=== PATIENT | male | born 1965 | race Caucasian/White ===

== ENCOUNTER 2017-09-03 11:19 | Emergency (ER) | payer BC ==
[2017-09-03] MEDS ORDERED: ASPIRIN 81 MG TABLET, CHEWABLE PO ONE (11:53)
--- NOTE | 2017-09-03 11:57 | ER Document Report ---
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 Pt notes shortness of breath, pt went to pcp today, had EKG showing LBBB and sent in for evalution TRAVEL OUTSIDE OF THE [place] IN LAST 30 DAYS: No - HPI Onset: Other Onset/Duration: Intermittent Quality of pain: Pressure Severity: Mild Pain Level: 1 Associated symptoms: Chest pain Exacerbated by: Other Relieved by: Supine Similar symptoms previously: Yes Recently seen / treated by doctor: Yes - Related Data Allergies/Adverse Reactions: No Known Allergies Allergy (Verified 09/03/17 11:41) Past Medical History - Social History Smoking Status: Never Smoker Cigarette use (# per day): No Chew tobacco use (# tins/day): No Smoking Education Provided: No Frequency of alcohol use: None Drug Abuse: None Family History: Reviewed & Not Pertinent Patient has suicidal ideation: No Patient has homicidal ideation: No - Past Medical History Cardiac Medical History: Denies: Hx Coronary Artery Disease, Hx Heart Attack, Hx Hypertension Pulmonary Medical History: Denies: Hx Asthma, Hx Bronchitis, Hx COPD, Hx Pneumonia Neurological Medical History: Denies: Hx Cerebrovascular Accident, Hx Seizures Renal/ Medical History: Denies: Hx Peritoneal Dialysis Musculoskeltal Medical History: Denies Hx Arthritis Past Surgical History: Denies: Hx Pacemaker Review of Systems - Review of Systems Notes: REVIEW OF SYSTEMS: CONSTITUTIONAL : Denies fever, chills, or sweats. Denies recent illness. EENT: Denies eye, ear, throat, or mouth pain or symptoms. Denies nasal or sinus congestion or discharge. Denies throat, tongue, or mouth swelling or difficulty swallowing. CARDIOVASCULAR: Admits to chest pain RESPIRATORY: Denies cough, cold, or chest congestion. Denies shortness of breath, difficulty breathing, or wheezing. GASTROINTESTINAL: Denies abdominal pain or distention. Denies nausea, vomiting , or diarrhea. Denies blood in vomitus, stools, or per rectum. Denies black, tarry stools. Denies constipation. GENITOURINARY: Denies difficulty urinating, painful urination, burning, frequency, blood in urine, or discharge. MUSCULOSKELETAL: Denies back or neck pain or stiffness. Denies joint pain or swelling. SKIN: Denies rash, lesions or sores. HEMATOLOGIC : Denies easy bruising or bleeding. LYMPHATIC: Denies swollen, enlarged glands. NEUROLOGICAL: Denies confusion or altered mental status. Denies passing out or loss of consciousness. Denies dizziness or lightheadedness. Denies headache. Denies weakness or paralysis or loss of use of either side. Denies problems with gait or speech. Denies sensory loss, numbness, or tingling. Denies seizures. PSYCHIATRIC: Denies anxiety or stress. Denies depression, suicidal ideation, or homicidal ideation. ALL OTHER SYSTEMS REVIEWED AND NEGATIVE. Dictation was performed using [employer] voice recognition software PHYSICAL EXAMINATION: GENERAL: Well-appearing, well-nourished and in no acute distress. HEAD: Atraumatic, normocephalic. EYES: Pupils equal round and reactive to light, extraocular movements intact, sclera anicteric, conjunctiva are normal. ENT: Nares patent, oropharynx clear without exudates. Moist mucous membranes. NECK: Normal range of motion, supple without lymphadenopathy LUNGS: Breath sounds clear to auscultation bilaterally and equal. No wheezes rales or rhonchi. HEART: Regular rate and rhythm without murmurs ABDOMEN: Soft, nontender, nondistended abdomen. No guarding, no rebound. No masses appreciated. Musculoskeletal: Normal range of motion, no pitting or edema. No cyanosis. NEUROLOGICAL: Cranial nerves grossly intact. Normal speech, normal gait. Normal sensory, motor exams PSYCH: Normal mood, normal affect. SKIN: Warm, Dry, normal turgor, no rashes or lesions noted. Physical Exam - Vital signs Vitals: Temp Pulse Resp BP Pulse Ox 98.7 F 71 16 150/89 H 98 09/03/17 11:25 09/03/17 11:25 09/03/17 11:25 09/03/17 11:25 09/03/17 11:25 Course - Re-evaluation Re-evalutation: 09/03/17 11:59 Patient's EKG was noted in the office does show left bundle branch block, was sent in and initial EKG at 11:35:09 notes left bundle branch block with a left bundle branch block resolves within 45 seconds, this occurs when he is chest pain-free, patient denies any episodes of WPW is not noted to be tachycardic, I did speak with Dr. Galarza who requests patient be obs 09/03/17 12:08 Dr Craig looked at ekg he has concerns of early preexitation WPW, MAYURI lopez EP consulted 09/03/17 13:34 I spoke with transfer center, there EP physician Dr. Alves does not believe it is Bkafr-Lcadjrnha-Ogezi syndrome, they requested their hospitalist to take the patient instead, Dr. Sales has accepted the patient - Vital Signs Vital signs: Temp Pulse Resp BP Pulse Ox 98.7 F 71 17 161/97 H 100 09/03/17 11:25 09/03/17 11:25 09/03/17 12:01 09/03/17 12:01 09/03/17 12:01 - Laboratory Result Diagrams: 09/03/17 12:00 09/03/17 12:00 Laboratory results interpreted by me: 09/03/17 12:00 Calcium 10.4 H - Diagnostic Test Radiology reviewed: Image reviewed, Reports reviewed - EKG Interpretation by Me EKG shows normal: Sinus rhythm, QRS Complexes, ST-T Waves [place]/QRS: LBBB When compared to previous EKG there are: Previous EKG unavailable Additional EKG results interpreted by me: 09/03/17 12:02 Initial EKG notes left bundle branch block secondary EKG just for a second later notes normal sinus rhythm Discharge - Discharge Clinical Impression: WPW (Lpbxt-Cbewvsjsp-Dxuit syndrome) Chest pain Qualifiers: Chest pain type: unspecified Qualified Code(s): R07.9 - Chest pain, unspecified Condition: Stable Disposition: [facility]
[2017-09-03 12:18] LABS: ABSOLUTE EOSINOPHILS # (AUTO) 0.1 10^3/uL (0.0-0.6); ABSOLUTE MONOCYTES (AUTO) 0.7 10^3/uL (0.1-1.4); ABSOLUTE NEUT (AUTO) 2.9 10^3/uL (1.7-8.2); BASOPHILS % (AUTO) 0.9 % (0-2); EOSINOPHILS % (AUTO) 1.7 % (0-6); HEMATOCRIT 45.5 % (37.9-51.0); HEMOGLOBIN 15.9 g/dL (13.5-17.0); MEAN CORPUSCULAR HEMOGLOBIN 32.5 pg (27.0-33.4); MEAN CORPUSCULAR VOLUME 93 fl (80-97); MONOCYTES % (AUTO) 12.3 % (3-13); PLATELET COUNT 214 10^3/uL (150-450); RED BLOOD COUNT 4.89 10^6/uL (4.35-5.55); RED CELL DISTRIBUTION WIDTH 12.7 % (11.5-14.0); SEGMENTED NEUTROPHILS % (AUTO) 50.1 % (42-78); TOTAL CELLS COUNTED % (AUTO) 100 %; WHITE BLOOD COUNT 5.7 10^3/uL (4.0-10.5)
--- NOTE | 2017-09-03 12:24 | RADIOLOGY REPORT (SQ) ---
EXAM DESCRIPTION: CHEST SINGLE VIEW COMPLETED DATE/TIME: 09/03/2017 12:12 pm REASON FOR STUDY: chest pain COMPARISON: CT chest 01/02/2011 EXAM PARAMETERS: NUMBER OF VIEWS: One view. TECHNIQUE: Single frontal radiographic view of the chest acquired. RADIATION DOSE: NA LIMITATIONS: None. FINDINGS: LUNGS AND PLEURA: No opacities, masses or pneumothorax. No pleural effusion. MEDIASTINUM AND HILAR STRUCTURES: No masses. Contour normal. HEART AND VASCULAR STRUCTURES: Heart normal in size. Normal vasculature. BONES: No acute findings. HARDWARE: None in the chest. OTHER: No other significant finding. IMPRESSION: NO ACUTE RADIOGRAPHIC FINDING IN THE CHEST. TECHNICAL DOCUMENTATION: JOB ID: [id number] [employer]- All Rights Reserved
[2017-09-03 12:34] LABS: ALANINE AMINOTRANSFERASE 59 U/L (21-72); ALBUMIN 4.9 g/dL (3.5-5.0); ALKALINE PHOSPHATASE 76 U/L (38-126); ANION GAP 11 (5-19); ASPARTATE AMINO TRANSFERASE 30 U/L (17-59); BILIRUBIN,DIRECT 0.2 mg/dL (0.0-0.4); BILIRUBIN,TOTAL 0.5 mg/dL (0.2-1.3); BLOOD UREA NITROGEN 12 mg/dL (7-20); CALCIUM 10.4 mg/dL (8.4-10.2); CARBON DIOXIDE 26 mmol/L (22-30); CHLORIDE 105 mmol/L (98-107); CREATINE KINASE 98 U/L (55-170); GLUCOSE 106 mg/dL (75-110); POTASSIUM 4.6 mmol/L (3.6-5.0); SODIUM 142.4 mmol/L (137-145); TOTAL PROTEIN 7.6 g/dL (6.3-8.2)
[2017-09-03 12:47] LABS: CREATINE KINASE MB 1.25 ng/mL (<4.55)
[2017-09-03 12:48] LABS: TROPONIN I < 0.012 ng/mL
[2017-09-03 15:45] VITALS: BP 166/105
--- NOTE | 2017-09-03 18:36 | EKG REPORT ---
SEVERITY:- ABNORMAL ECG - ACCELERATED JUNCTIONAL RHYTHM VS PACED BEATS LEFT BUNDLE BRANCH BLOCK : Confirmed by: Colleen Ware 03-Sep-2017 18:36:00
--- NOTE | 2017-09-04 08:20 | EKG REPORT ---
SEVERITY:- BORDERLINE ECG - SINUS RHYTHM PROBABLE LEFT ATRIAL ABNORMALITY : Confirmed on behalf of: Colleen Ware 04-Sep-2017 08:19:57
== END 2017-09-03 15:35 | disposition short-term general hospital (02) ==
LOC: ER 11:19
DX: I45.6 Pre-excitation syndrome (principal); I44.7 Left bundle-branch block, unspecified; R07.89 Other chest pain
CPT/HCPCS: 36415; 71045; 80053; 82550; 82553; 83735; 84484; 85025; 93005; 93010; 99285

== ENCOUNTER → 2019-06-24 | Outpatient (CLI) | payer BC ==
--- NOTE | 2019-06-24 15:59 | RADIOLOGY REPORT (SQ) ---
EXAM DESCRIPTION: MRI LT LOWER JOINT WITHOUT COMPLETED DATE/TIME: 06/24/2019 2:16 pm REASON FOR STUDY: M23.92 UNSPECIFIED INTERNAL DERANGEMENT OF LEFT KNEE M23.92 UNSPECIFIED INTERNAL DERANGEMENT OF LEFT KNEE COMPARISON: None. TECHNIQUE: Leftknee images acquired and stored on PACS. Multiplanar images include fat sensitive se quences as T1, water sensitive sequences as FST2 or STIR, cartilage sensitive sequences as FSPD, and gradient echo sequences. LIMITATIONS: None. FINDINGS: JOINT AND BURSAE: No effusion. BONE CORTEX AND MARROW: Mild edema in the lateral tibial plateau. No evidence of depressed fracture. ACL: Intact. PCL: Intact. MCL: Generally intact. Mild edema superficial to the ligament, which otherwise looks normal. LCL: Intact. No periligamentous edema or fluid. MEDIAL MENISCUS: Tear in the posterior horn extending throughout the body, predominantly horizontal b ut with mild complexity. Slightly extruded appearance. LATERAL MENISCUS: No tears. No abnormal signal. MEDIAL COMPARTMENT: Chondral thinning. No focal full-thickness defects. LATERAL COMPARTMENT: No focal full-thickness defects, subchondral cysts or erosions. PATELLA: Normal location. No focal chondral defects. EXTENSOR MECHANISM: Intact. Quadriceps and patella tendons normal. SOFT TISSUES: Popliteal cyst with debris and loose bodies. Appropriate vascular flow voids. OTHER: No other significant finding. IMPRESSION: 1. Contusion edema in the lateral tibia. No history of trauma. No depression of the articular surfa ce. 2. Medial meniscus tear. 3. Low grade sprain medial meniscus. TECHNICAL DOCUMENTATION: JOB ID: [id number] [employer]- All Rights Reserved Reading location - IP/workstation name: [email or web address]
== END ==
LOC: RAD 13:03
PROVIDERS: ATTEND Orthopaedic Surgery
DX: M23.204 Derangement of unspecified medial meniscus due to old tear or injury, left knee (principal)

== ENCOUNTER 2019-07-17 09:47 | Day surgery (SDC) | payer BC ==
[2019-07-08 10:38] LABS: ABSOLUTE BASOPHILS # (AUTO) 0.1 10^3/uL (0.0-0.2); ABSOLUTE EOSINOPHILS # (AUTO) 0.1 10^3/uL (0.0-0.6); ABSOLUTE LYMPHOCYTES (AUTO) 1.7 10^3/uL (0.5-4.7); ABSOLUTE MONOCYTES (AUTO) 0.7 10^3/uL (0.1-1.4); ABSOLUTE NEUT (AUTO) 2.3 10^3/uL (1.7-8.2); BASOPHILS % (AUTO) 1.1 % (0-2); EOSINOPHILS % (AUTO) 1.6 % (0-6); HEMATOCRIT 42.2 % (37.9-51.0); HEMOGLOBIN 15.1 g/dL (13.5-17.0); LYMPHOCYTES % (AUTO) 36.2 % (13-45); MEAN CORPUSCULAR HEMOGLOBIN 33.1 pg (27.0-33.4); MEAN CORPUSCULAR HGB CONC 35.7 g/dL (32.0-36.0); MEAN CORPUSCULAR VOLUME 93 fl (80-97); MONOCYTES % (AUTO) 13.6 % (3-13); PLATELET COUNT 254 10^3/uL (150-450); RED BLOOD COUNT 4.56 10^6/uL (4.35-5.55); RED CELL DISTRIBUTION WIDTH 12.3 % (11.5-14.0); SEGMENTED NEUTROPHILS % (AUTO) 47.5 % (42-78); TOTAL CELLS COUNTED % (AUTO) 100 %; WHITE BLOOD COUNT 4.8 10^3/uL (4.0-10.5)
[2019-07-08 10:59] LABS: ANION GAP 11 (5-19); BLOOD UREA NITROGEN 12 mg/dL (7-20); CARBON DIOXIDE 25 mmol/L (22-30); CHLORIDE 104 mmol/L (98-107); GLUCOSE 98 mg/dL (75-110); POTASSIUM 4.6 mmol/L (3.6-5.0)
--- NOTE | 2019-07-08 18:26 | EKG REPORT ---
SEVERITY:- ABNORMAL ECG - ACCELERATED JUNCTIONAL RHYTHM LEFT BUNDLE BRANCH BLOCK : Confirmed by: Colleen Ware 08-Jul-2019 18:25:44
[~2019-07-17 09:47] MED LIST: ACETAMINOPHEN 325 MG TABLET PO PRN; CEFAZOLIN SODIUM 2 GM in DEXTROSE 5%-WATER 100 ML IV PRN; LACTATED RINGERS 1000 ML IV PRN; LIDOCAINE 0.5% INJ-PF (5 MG/ML) 50 ML SDV SUBCUT PRN; OXYCODONE HCL SR 10 MG TABLET PO PRN
[2019-07-17] MEDS ORDERED: ACETAMINOPHEN 325 MG TABLET ONE (10:07)
[2019-07-17] MEDS ORDERED: OXYCODONE HCL SR 10 MG TABLET PO ONE (10:07)
[2019-07-17] MEDS ORDERED: BUPIVACAINE HCL 0.5 % INJ/PF 30 ML SDV ONE (12:22)
[2019-07-17] MEDS ORDERED: LIDOCAINE 1% INJ-PF (10 MG/ML) 30 ML SDV ONE (12:22)
[2019-07-17] MEDS ORDERED: TRIAMCINOLONE ACETONIDE INJ 40 MG/1 ML VIAL ONE (12:23)
[2019-07-17] MEDS ORDERED: KETOROLAC TROMETHAMINE INJ/PF 30 MG/1 ML SDV ONE (12:23)
[2019-07-17] MEDS ORDERED: ONDANSETRON HCL INJ/PF 4 MG/2 ML SDV ONE (13:00)
[2019-07-17] MEDS ORDERED: MIDAZOLAM 2 MG/2 ML INJ ONE (13:00)
[2019-07-17] MEDS ORDERED: PROPOFOL INJ 200 MG/20 ML VIAL IV ONE (13:00)
[2019-07-17] MEDS ORDERED: FENTANYL CITRATE INJ/PF 100 MCG/2 ML AMPUL ONE (13:00)
[2019-07-17] MEDS ORDERED: EPINEPHRINE INJ/PF 1 MG/1 ML AMPULE ONE ×3 (13:20→13:35)
[2019-07-17] MEDS ORDERED: SUCCINYLCHOLINE CHLORIDE INJ 200 MG/10 ML VIAL ONE (13:48)
[2019-07-17] MEDS ORDERED: FENTANYL CITRATE INJ/PF 100 MCG/2 ML AMPUL IV PRN ×3 (13:58)
[2019-07-17] MEDS ORDERED: TRIAMCINOLONE ACETONIDE INJ 40 MG/1 ML VIAL INJ ONE (13:58)
[2019-07-17] MEDS ORDERED: DIPHENHYDRAMINE HCL 50 MG/ML VIAL IV PRN (13:58)
[2019-07-17] MEDS ORDERED: MORPHINE SULFATE 10 MG/ML INJ IV PRN (13:58)
[2019-07-17] MEDS ORDERED: PROMETHAZINE HCL INJ 25 MG/1 ML VIAL IV PRN (13:58)
[2019-07-17] MEDS ORDERED: MEPERIDINE HCL/PF INJ 25 MG/1 ML DISP.SYRIN IV PRN (13:58)
[2019-07-17] MEDS ORDERED: KETOROLAC TROMETHAMINE INJ/PF 30 MG/1 ML SDV INJ ONE (13:59)
[2019-07-17] MEDS ORDERED: BUPIVACAINE HCL 0.25 % INJ/PF (2.5 MG/1 ML) 30 ML VIAL INJ ONE (14:00)
[2019-07-17] MEDS ORDERED: LIDOCAINE 1% INJ (10 MG/ML) 10 ML MDV INJ ONE (14:00)
--- NOTE | 2019-07-17 15:01 | Operative Report ---
Operative Report DATE OF SURGERY: 07/17/19 PREOPERATIVE DIAGNOSIS: Left medial meniscus tear POSTOPERATIVE DIAGNOSIS: Left medial meniscus tear, patellofemoral chondromalacia, grade 4 femur and tibia osteochondral lesions. OPERATION: Left knee arthroscopic partial medial meniscectomy SURGEON: FAREED FISCHER JR ANESTHESIA: GA COMPLICATIONS: none ESTIMATED BLOOD LOSS: minimal PROCEDURE: DESCRIPTION OF THE PROCEDURE: The patient was placed supine on the operating room table. After the patient was placed under general anesthesia, and appro priate timeout was performed. The patient was prepped and draped in the usual sterile fashion for arthroscopic surgery. The left lower extremity was then exsanguinated with the use of an Esmarch bandage and the tourniquet was inflated to 280 mmHg. The operation commenced with creation of the lateral portal utilizing his prior incision. The arthroscope was directed into the suprapatellar pouch with the knee held in extension. A systematic examination of the left knee was begun arthroscopically. The patellofemoral articulation was visualized and grade 4 changes were apparent in the trochlea but only minimal degenerative changes were found on the patella surface. The medial gutter was entered. No loose bodies were identified. The medial compartment was then entered and the medial portal was established under direct visualization with a spinal needle. The arthroscopic probe was used to inspect the contents of the medial compartment. There was a degenerative horizontal cleavage tear with some extrusion into the joint that carried from the mid coronal plane all the way back to the root. In the mid coronal plane there was a nearly complete radial tear. At this point, a biter was utilized to remove the unstable portion of the medial meniscus, this was resected to a stable base and a suction shaver was then utilized to remove debris. The notch was then visualized. The anterior cruciate ligament and PCL were found to be intact. The arthroscope was directed into the lateral compartment. There was moderate meniscal fraying without an overt tear of the lateral meniscus. Shaver was utilized to remove the frayed edge of the lateral meniscus. A full-thickness fissure was found on the medial aspect of the lateral tibial plateau running from anterior to posterior. This was probed and the cartilage surrounding was found to be stable without delamination. Femoral condyle was found to be intact without signs of degenerative change in the lateral compartment. Portals were exchanged and the medial part of the medial meniscectomy was completed. The patellofemoral compartment was revisited and grade 4 changes were documented. A mixture of Marcaine, lidocaine, toradol and Kenalog was injected into the right knee. The instruments were then removed. The portals were closed with 3-0 nylon and Xeroform and a light compressive dressing was applied. The tourniquet was deflated. The patient was recovered from his anesthetic and was returned to the recovery room in stable condition. There were no complications.
[2019-07-17] MEDS ORDERED: MEPERIDINE HCL/PF INJ 25 MG/1 ML DISP.SYRIN ONE (15:03)
[2019-07-17 16:51] VITALS: BP 138/88
--- NOTE | 2019-07-19 05:58 | Discharge Summary ---
Discharge Summary (SDC) - Discharge Final Diagnosis: Left medial meniscus tear. Date of Surgery: 07/17/19 Discharge Date: 07/17/19 Forms: ASU Anesthesia D/C Instruction, Discharge POC-Surgical Service Treatment or Instructions: FOLLOWUP WITH DR. FISCHER SCHEDULED Self-care: * Apply ice on your knee for 15 to 20 minutes every hour or as directed. Use an ice pack, or put crushed ice in a plastic bag. Cover it with a towel. Ice helps prevent tissue damage and decreases swelling and pain. * Elevate your knee above the level of your heart as often as you can. This will help decrease swelling and pain. Prop your leg on pillows or blankets to keep it elevated comfortably. Do not put pillows directly behind your knee. * Keep weight off of your knee Seek care immediately if: * Blood soaks through your bandage. * Your stitches come apart. * Your leg feels numb or cold and looks pale. * Your leg is larger than normal, red and painful. * You cannot move your leg or foot. Contact your healthcare provider if: * You have a fever or chills. * Your wound is red, swollen, or draining pus. * You have severe pain in your knee even after you take pain medicine. * Your skin is itchy, swollen, or you have a rash. Referrals: JEREMY NEWELL MD [Primary Care Provider] - FAREED FISCHER JR, DO [ACTIVE PROVISIONAL STAFF] - Discharge Diet: As Tolerated Respiratory Treatments at Home: Deep Breathing/Coughing Discharge Activity: Activity As Tolerated, Balance Activity w/Rest, Keep Legs Elevated, No Lifting Over 10 Pounds, No Lifting/Push/Pulling, No tub bath Home Care Assistance: None Needed Report the Following to Your Physician Immediately: Shortness of Breath, Nausea, Vomiting, Increase in Pain, Fever over 101 Degrees, Unusual Bleeding, Redness, Swelling, Warmth, Increased Soreness, Drainage-Yellow, Drainage-Mcintosh, Drainage- Green, Drainage-Foul Smelling, Large Clots, Numbness, Tingling Sensation, Wheezing, Seizure, IV Site Infection Signs, Urinary Infection Signs
== END 2019-07-17 16:40 | disposition home or self-care (01) ==
LOC: OROUT 09:47
PROVIDERS: ATTEND Orthopaedic Surgery
DX: S83.242A Other tear of medial meniscus, current injury, left knee, initial encounter (principal); X58.XXXA Exposure to other specified factors, initial encounter; M22.42 Chondromalacia patellae, left knee
CPT/HCPCS: 93005; 36415; 85025; 80048; 93010; 29880; J2250; J3490 ×2; J0690; J0171; J3010; J2175; J1885; J0330; J2405; J3301; J7060; J2704; 1400